=== PATIENT | male | born 1970 | race Caucasian/White ===

== ENCOUNTER 2021-03-21 12:39 | Emergency (ER) | payer SELFPAY ==
[2021-03-21 12:40] VITALS: BP 133/84; PULSE 85; RESP 18; TEMP 36; O2SAT 98
[2021-03-21 14:10] LABS: Absolute Lymphocyte Count 3.08 X10^3/uL (0.83-4.51); Absolute Neutrophil Count 7.2 X10^3/uL (2.0-7.7); Basophil# 0.04 X10^3/uL; Basophil% 0.3 % (0-1); Eosinophil# 0.27 X10^3/uL; Eosinophils% 2.3 % (0-5); Hematocrit 51.2 % (40-54); Hemoglobin 17.6 g/dL (13.0-16.5); Lymphocyte # 3.08 X10^3/ul (0.83-4.51); Lymphocyte % 26.4 % (19-41); Mean Corp Hgb Conc 34.4 g/dL (32-36); Mean Corpuscular Hgb 31.5 pg (27.0-32.0); Mean Corpuscular Volume 91.6 fL (80-94); Mean Platelet Vol. 9.5 fl (6.2-12.0); Monocyte% 8.6 % (0-10); NRBC Flagged by Analyzer 0 % (0-5); Neutrophil # 7.24 X10^3/uL (2.7-7.7); Platelet Count 244 K/mm3 (150-450); RBC Distribution Width CV 12.2 % (11.6-14.6); RBC Distribution Width SD 41.2 fl (35.1-43.9); Red Blood Count 5.59 M/mm3 (4.6-6.2); White Blood Count 11.7 K/mm3 (4.4-11.0)
[2021-03-21 14:21] LABS: ALB/GLOB Ratio 0.8 RATIO (0.9-2.4); AST(SGOT) 26 U/L (15-37); Alanine Aminotransfer ALT/SGPT 31 U/L (16-61); Albumin, Serum 3.9 g/dL (3.2-5.0); Alkaline Phosphatase 87 U/L (45-117); Anion Gap 6 (5-15); BUN 14 mg/dL (7-18); BUN/Creat Ratio 11.6 RATIO (10-20); Chloride 104 mmol/L (98-107); Creatinine, Serum 1.21 mg/dL (0.70-1.30); EST Glomerular Filtration Rate 68 mL/min (>60); Est Glom Filt Rate - Afr Amer 82 mL/min (>60); Glucose 106 mg/dL (74-106); Potassium 3.9 mmol/L (3.5-5.1); Protein, Total 8.9 g/dL (6.4-8.2); Sodium Level 135 mmol/L (136-145)
[2021-03-21] MEDS: Ondansetron 4 MG/2 ML Vial IV (14:30)
[2021-03-21] MEDS: 0.9% Normal Saline 1,000 ML 1000 ML IV (14:30)
[2021-03-21 14:39] LABS: Color, Urine Yellow (Yellow); Glucose, Dipstick Normal (Normal); Ketone-Dipstick 5 mg/dl (Negative); Leukocyte Esterase-Dipstick 25 /ul (Negative); Nitrite-Dipstick Negative (Negative); Occult Blood-Urine Negative /ul (Negative); Protein-Dipstick 30 mg/dl (Negative); Specific Gravity, Urine 1.025 (1.002-1.030); Urine Clarity Sl. Cloudy (Clear); Urine Urobilinogen 1 mg/dl (Normal)
[2021-03-21 14:44] LABS: Urine Bilirubin Dipstick 1 mg/dL (Negative)
--- NOTE | 2021-03-21 14:46 | EDS_ITS ---
HPI HPI - GI History of Present Illness Chief Complaint: Nausea/Vomiting/Diarrhea Informant: patient Abdominal Pain/Flank Pain Onset: Weeks (Onset 6 to 7 days ago) Context: Sudden Onset Timing: Intermittent Quality: Cramping Location: Diffuse Current Severity: Mild Maximum Severity: Moderate Worsened by: - (During vomiting and diarrhea) Relieved by: Nothing Nausea/Vomiting/Emesis GI Symptom: Positive for Nausea, Vomiting and - (3-4 episodes per day for the last 2 days) Onset: Days Quality: Negative for Blood streaks, Coffee ground and Hematemesis Severity: Moderate Diarrhea/Melena/Hematochezia GI Symptom: Positive for Diarrhea; Negative for Melena and Hematochezia Onset: Days (Diarrhea started 6 days ago) Stool Quality: Positive for Watery; Negative for Mucous, Black and Maroon Severity: Moderate Episodes: 6 Associated Symptoms Associated Symptoms: Positive for - (Patient endorses decreased urine output); Negative for Dysuria, Frequency and Hematuria Narrative Narrative: Patient is a 50-year-old male who presents with abdominal pain that started 6 to 7 days ago. He states he had diarrhea for the past 6 days. He is having 6-10 loose stools a day. He denies blood or mucus in his stool. He reports vomiting past 2 days. He is unable to to take his medicines without vomiting. Is not taking his blood pressure med or cholesterol med for the past 2 days. He reports decreased urine output. He does report lightheadedness. He does complain of mild headache with photophobia. Denies neck pain or neck stiffness. He denies double vision, blurred vision loss of his brain eyes ringing his ears decreased hearing. He does report mild rhinorrhea. He denies cough from baseline. He does have sore throat which he attributes to vomiting. He denies hematemesis or coffee-ground emesis. Denies black or maroon-colored stool. He states he has not been on antibiotics in the past month. He does report myalgias and arthralgias. He is not on any immunosuppressive meds. He is not vaccinated. Prior similar symptoms: Yes Recent Illness/Hospitalization: No [facility] Medical History Cholecystectomy planned High cholesterol Hypertension Tonsillectomy planned Home Medications atorvastatin 40 mg PO DAILY 03/21/21 [History Last Taken Unknown] ondansetron 4 mg PO Q8H PRN PRN #10 tab 03/21/21 [Rx Last Taken Unknown] Allergy/AdvReac Type Severity Reaction Status Date / Time Penicillins Allergy Hives Verified 03/21/21 13:21 Social History (Updated 03/21/21 @ 14:[address] Too Hook MD) household members: family Smoking Status: Current every day smoker tobacco type: cigarettes alcohol intake: current details: Not recently substance use type: does not use ROS ROS ED Constitutional Constitutional ED: Reports chills, fever(s) and sweats; Denies weight loss ENT ENT ED: Reports rhinorrhea and sore throat; Denies ear pain Cardiovascular Cardiovascular: Denies chest pain, orthopnea, palpitations or paroxysmal nocturnal dyspnea Respiratory/Chest Respiratory/Chest: Reports cough; Denies dyspnea, dyspnea on exertion, orthopnea, paroxysmal nocturnal dyspnea or sputum Gastrointestinal Gastrointestinal: Reports abdominal pain, diarrhea, nausea and vomiting Genitourinary Genitourinary ED: Denies dysuria, hematuria or urinary frequency Musculoskeletal Musculoskeletal: Reports arthralgias and myalgias; Denies back pain or neck pain Integumentary Denies rash Neurologic Neurologic: Reports headache(s) and weakness; Denies paresthesias Endocrine Endocrinology: Denies polydipsia, polyphagia or polyuria Hematologic/Lymphatic Hematologic/Lymphatic: Denies easy bleeding or easy bruising EXAM Physical Exam Const Vital Signs: 03/21/21 12:40 03/21/21 16:05 Temperature 96.8 F L Temperature Source Temporal Pulse Rate 85 78 Respiratory Rate 18 16 Blood Pressure 133/84 H 153/98 H Blood Pressure Mean 100 116 Pulse Ox 98 98 Oxygen Delivery Method Room Air Room Air Positive well nourished, well developed and obese General Appearance ED: well developed; Negative for pallor Nutritional Appearance: obese HEENT Reports TM's clear and dry mucous membranes HEENT Narrative: Nares patent with slight clear drainage. normocephalic and atraumatic Tympanic Membrane ED: Yes TM's clear Mouth ED: Yes dry mucous membranes Mouth: dry mucous membranes Eyes PERRL and EOMs intact bilaterally General Eye ED: Negative for pale conjunctiva or scleral icterus Neck no lymphadenopathy, supple and no JVD Resp normal respiratory effort and clear to auscultation bilaterally Cardio regular rate, regular rhythm, S1 normal heart sound, S2 normal heart sound and no murmurs GI non-distended and no masses; Negative for non-tender Auscultation: hyperactive bowel sounds; Negative for normoactive bowel sounds Palpation: soft and tender other (Diffuse); Negative for guarding, rigid, hepatomegaly or splenomegaly Back/Spine no CVA tenderness Cervical Spine: Negative for cervical spine tenderness Thoracic Spine / Upper Back: Negative for thoracic spinal tenderness Lumbar Spine / Lower Back: Negative for lumbar spinal tenderness Extremity full ROM General Extremety ED: Yes edema General Extremity: edema Neuro CN's II-XII intact bilaterally Sensorium / Orientation: alert, oriented to person, oriented to place and oriented to time Motor Exam: strength 5/5 throughout Psych mental status grossly normal and thought process normal Skin no wounds General Skin Exam: Negative for jaundice or pallor Lesions: no lesions Rashes: no rashes MDM MDM MDM Narrative Medical decision making narrative: Clinically patient is dehydrated. Will obtain CBC to assess white count and H&H. Comprehensive metabolic panel was obtained to assess liver enzymes, renal function and anion gap. Urine to assess specific gravity and determine if patient has ketones or bilirubin in his urine. He was ordered 1 L of normal saline wide open. He was ordered Zofran for his nausea and vomiting. Since this may represent Covid a Covid test was obtained. PCR test was ordered since his symptoms started greater than 6 days ago. He had no diarrhea in the department. He had small episode of emesis after having potato chips. Patient was told he is to advance his diet slowly. Lab Data Attestation: I reviewed the patient's lab results. Lab results narrative: White count is still elevated 11.7. Hemoglobin is elevated 17.6 which probably represents hemoconcentration. Electrolyte panel reveals slight decrease in sodium of 135. Creatinine is elevated 121 however GFR is 68. Specific gravity is elevated 1.025 and there is evidence of ketones consistent with dehydration. There is 1+ bilirubin. However his total bilirubin and liver enzymes are normal. Suspect this is a false positive. Labs: Laboratory Results - last 24 hr 03/21/21 03/21/21 03/21/21 13:35 13:35 14:30 WBC 11.7 H RBC 5.59 Hgb 17.6 H Hct 51.2 MCV 91.6 MCH 31.5 MCHC 34.4 RDW Std Deviation 41.2 RDW Coeff of Rayshawn 12.2 Plt Count 244 MPV 9.5 Immature Gran % (Auto) 0.400 Neut % (Auto) 62.0 Lymph % (Auto) 26.4 Garza % (Auto) 8.6 Eos % (Auto) 2.3 Baso % (Auto) 0.3 Absolute Neuts (auto) 7.2 Absolute Lymphs (auto) 3.08 Nucleated RBC % 0 Sodium 135 L Potassium 3.9 Chloride 104 Carbon Dioxide 25.0 Anion Gap 6 BUN 14 Creatinine 1.21 Estim Creat Clear Calc 86.80 Est GFR (MDRD) Af Amer 82 Est GFR (MDRD) Non-Af 68 BUN/Creatinine Ratio 11.6 Glucose 106 Calcium 10.0 Total Bilirubin 0.80 AST 26 ALT 31 Alkaline Phosphatase 87 Total Protein 8.9 H Albumin 3.9 Globulin 5.0 H Albumin/Globulin Ratio 0.8 L Urine Color Yellow Urine Clarity Sl. Cloudy Urine pH 5.0 Ur Specific [place] 1.025 Urine Protein 30 H Urine Glucose (UA) Normal Urine Ketones 5 H Urine Occult Blood Negative Urine Nitrite Negative Urine Bilirubin 1 H Urine Urobilinogen 1 H Ur Leukocyte Esterase 25 H Urine RBC 0-5 SEEN Urine WBC 0-5 SEEN Ur Squamous Epith Cells 0-5 SEEN Urine Bacteria RARE Urine Mucus 2+ Discharge Plan Triage Chief Complaint: Nausea/Vomiting/Diarrhea ED Provider: Too Hook Dx/Rx/DC Orders Clinical Impression: Combined abdominal pain, vomiting, and diarrhea, Dehydration, moderate, Ketosis Instructions: ED Dehydration (Adult), ED Vomiting and Diarrhea ... Prescriptions: New ondansetron [ondansetron] 4 MG tablet 4 mg PO Q8H PRN PRN (Reason: Nausea) Qty: 10 RF: 0 No Action atorvastatin 40 mg Tablet 40 mg PO DAILY RF: 0 Primary Care Provider: Care Physician,No Primary Referrals: Care Physician,No Primary [Primary Care Provider] - Disposition Disposition: Home, Self Care
[2021-03-21 14:48] LABS: Bacteria RARE /hpf (None Seen); Mucous, Urine 2+ /hpf (<or=2+); Red Blood Cells-Urine 0-5 SEEN /hpf (0-5); Squamous Epithelial Cells - UA 0-5 SEEN /hpf (0-5); White Blood Cells 0-5 SEEN /hpf (0-5)
[2021-03-21 16:05] VITALS: BP 153/98; PULSE 78; RESP 16; O2SAT 98
[2021-03-21] MEDS: Mag Hydrox/Al Hydrox/Simeth 30 ML UDC PO (17:08)
[2021-03-21 17:09] VITALS: BP 145/95; PULSE 77; RESP 12; O2SAT 97
== END 2021-03-21 17:15 | disposition home or self-care (01) ==
PROVIDERS: Emergency Provider Emergency Medicine
DX: R10.9 Unspecified abdominal pain (principal); R11.2 Nausea with vomiting, unspecified; R19.7 Diarrhea, unspecified; E86.0 Dehydration; E78.00 Pure hypercholesterolemia, unspecified; I10 Essential (primary) hypertension; Z79.899 Other long term (current) drug therapy; F17.210 Nicotine dependence, cigarettes, uncomplicated; E66.9 Obesity, unspecified
CPT/HCPCS: 80053; 81001; 85025; 87635; 96361; 96374; 99285; J7030; U0005; A4216; J2405; U0003

== ENCOUNTER 2021-06-09 13:06 | Emergency (ER) | payer OTHER, SELFPAY ==
[2021-06-09 13:07] VITALS: BP 131/83; PULSE 81; RESP 16; TEMP 36.2; O2SAT 98; BMI 29.6
--- NOTE | 2021-06-09 14:18 | EX.ED.DYSGE1 ---
HPI History of Present Illness Chief Complaint: General Illness Informant: patient Onset/Context/Timing Onset: Yesterday Context: Gradual Onset Timing: Continuous Current Severity: Moderate Maximum Severity: Moderate Associated Symptoms Associated Symptoms ED: cough Narrative Narrative: Unvaccinated patient had started having Covid symptoms yesterday had a positive home test and presents for further evaluation. He has a history of hypertension for which he states he is already treated. Denies any pleuritic chest pain or dyspnea. Just basically malaise, fatigue, myalgias, cough, loss of taste and smell, PFSH PFSH Medical History High cholesterol Hypertension Smoker Home Medications atorvastatin 40 mg PO DAILY 03/21/21 [History Last Taken Unknown] lisinopril 40 mg PO DAILY 06/09/21 [History Last Taken Unknown] Allergy/AdvReac Type Severity Reaction Status Date / Time Penicillins Allergy Hives Verified 06/09/21 13:08 Surgical History (Updated 06/09/21 @ 14:20 by Kash Navarro) History of cholecystectomy History of tonsillectomy and adenoidectomy Social History household members: family Smoking Status: Heavy Smoker (>10/day) alcohol intake: current details: Not recently substance use type: does not use ROS ROS ED Constitutional Constitutional ED: Reports body ache(s), chills, fatigue, fever(s), headache(s) and malaise Eyes Eyes: Denies change in vision or diplopia ENT ENT ED: Denies rhinorrhea or sore throat Cardiovascular Cardiovascular: Denies chest pain or palpitations Respiratory/Chest Respiratory/Chest: Reports cough; Denies dyspnea or dyspnea on exertion Gastrointestinal Gastrointestinal: Reports diarrhea; Denies abdominal pain, nausea or vomiting Genitourinary Genitourinary ED: Denies dysuria or hematuria Musculoskeletal Musculoskeletal: Denies back pain or neck pain Integumentary Denies abscess or rash Neurologic Neurologic: Reports headache(s); Denies paresthesias or weakness Psychiatric Psychiatric: Denies anxiety or suicidal thoughts EXAM Physical Exam Const Vital Signs: 06/09/21 13:07 06/09/21 14:19 Temperature 97.1 F L Temperature Source Temporal Pulse Rate 81 77 Respiratory Rate 16 16 Respiratory Effort Normal Respiratory Pattern Normal Blood Pressure 131/83 H Blood Pressure Mean 99 Pulse Ox 98 98 Oxygen Delivery Method Room Air Room Air Positive well nourished and well developed Constitutional Narrative: Well-appearing, no distress General Appearance ED: well developed and NAD HEENT Reports moist mucous membranes normocephalic and atraumatic Eyes PERRL and EOMs intact bilaterally Neck full ROM and supple Resp normal respiratory effort and clear to auscultation bilaterally Cardio regular rate, regular rhythm and no murmurs Rate: Negative for tachycardic GI non-tender and non-distended Auscultation: normoactive bowel sounds Palpation: soft Back/Spine no CVA tenderness General Back: other FROM Extremity normal to inspection and no calf tenderness General Extremety ED: Negative for edema, pulses abnormal or tenderness General Extremity: Negative for edema or pulses abnormal Neuro oriented x3, CN's II-XII intact bilaterally and no sensory deficits noted Sensorium / Orientation: awake and alert Motor Exam: strength 5/5 throughout Skin no rashes or lesions noted and no wounds MDM MDM MDM Narrative Medical decision making narrative: Patient is oxygenating well with normal vital signs. Rapid Covid confirms that he has COVID-19, we did this for the purpose of getting him monoclonal antibody infusion therapy which he is interested in after we discussed the pros and cons, and he is a candidate because of his history of hypertension. He was referred to that. Lab Data Attestation: I reviewed the patient's lab results. Discharge Plan Triage Chief Complaint: General Illness ED Provider: Bart Horton Dx/Rx/DC Orders Clinical Impression: COVID-19 Instructions: Coronavirus Disease 2019 (COVID-19): Caring for Yourself or Others Prescriptions: No Action atorvastatin 40 mg Tablet 40 mg PO DAILY RF: 0 lisinopril 40 mg Tablet 40 mg PO DAILY RF: 0 Other Ambulatory Orders: COVID Outpatient Monoclonal Antibody Referral (Routine) Timeframe: 1 Day Facility: [facility] - Location: [facility] Ordered By: Dr. Bart Horton Primary Care Provider: Care Physician,No Primary Referrals: Care Physician,No Primary [Primary Care Provider] - Activity Restrictions/Additional Instructions: Try to get a home portable pulse oximeter and closely watch your oxygen levels periodically. If you stay below 90% for more than a minute or so, and/or you are feeling like your breathing is getting worse, return to the emergency department for further evaluation. Disposition Disposition: Home, Self Care
[2021-06-09 14:19] VITALS: PULSE 77; RESP 16; O2SAT 98
[2021-06-09 15:19] VITALS: BP 130/85; PULSE 79; RESP 18; O2SAT 98
--- NOTE | 2021-06-09 15:19 | CM.ED ---
SW Note Referral Source: case Find Referral REason: No PCP SW met with patient. He confirmed he has insurance. SW provided him with [facility] 2020 Healthcare Provider Directory and encouraged him to obtain a PCP. No further SW needs at this time. Natalee DANIELS
== END 2021-06-09 15:20 | disposition home or self-care (01) ==
PROVIDERS: Emergency Provider Emergency Medicine
DX: U07.1 COVID-19 (principal); I10 Essential (primary) hypertension; E78.00 Pure hypercholesterolemia, unspecified; F17.200 Nicotine dependence, unspecified, uncomplicated; Z79.899 Other long term (current) drug therapy
CPT/HCPCS: 87426; 99282

== ENCOUNTER 2021-06-13 08:40 | Outpatient (CLI) | payer OTHER, SELFPAY ==
[2021-06-13 08:50] VITALS: BP 114/67; PULSE 60; RESP 16; TEMP 36.5; O2SAT 99
[2021-06-13 08:53] VITALS: BP 110/69; PULSE 68; RESP 16; TEMP 36.4; O2SAT 99; BMI 31.2
[2021-06-13] MEDS: 0.9% Saline Lock 10 ML Syringe IV (08:56)
[2021-06-13 10:37] VITALS: BP 118/65; PULSE 58; RESP 16; TEMP 36.5; O2SAT 97
== END 2021-06-13 10:39 | disposition home or self-care (01) ==
LOC: MS3OUT 08:40 → MS3 08:41
PROVIDERS: Referring Provider Nurse Practitioner Adult Health; Visit Provider Nurse Practitioner Adult Health
DX: U07.1 COVID-19 (principal)
CPT/HCPCS: J7050; M0245; Q0245; A4216

== ENCOUNTER 2021-08-27 09:20 | Emergency (ER) | payer BC, SELFPAY ==
[2021-08-27 09:20] VITALS: BP 151/88; PULSE 73; RESP 18; TEMP 36.3; O2SAT 98; BMI 31.0
--- NOTE | 2021-08-27 09:47 | EDS_ITS ---
HPI History of Present Illness Chief Complaint: Back Informant: patient Narrative Narrative: Patient presents with back pain. He states he has been having pain for about 3 years. He states his right foot has been numb for 3 years. This is not changed or different. He states every few days he has pain that shoots down the back of his right leg all the way to his foot. He has been having this off and on for years also. He states it is bothering him today. And he has more pain in his lower back and buttock area on the right side. He does not and never has had bowel or bladder dysfunction. He has no fevers chills or recent infections. He states he took a hot bath this morning and when he got out it seemed to be worse. No abdominal pain. No blood in the urine. He can get in positions that make it better. Bending forward makes it worse. PFSH PFSH Medical History High cholesterol Hypertension Smoker Home Medications atorvastatin 40 mg PO DAILY 03/21/21 [History Last Taken Unknown] lisinopril 40 mg PO DAILY 06/09/21 [History Last Taken Unknown] cyclobenzaprine 10 mg PO BID PRN #10 tab 08/27/21 [Rx Last Taken Unknown] prednisone 60 mg PO DAILY #15 tab 08/27/21 [Rx Last Taken Unknown] tramadol 50 mg PO Q6H PRN 3 Days #10 tab 08/27/21 [Rx Last Taken Unknown] Allergy/AdvReac Type Severity Reaction Status Date / Time Penicillins Allergy Hives Verified 08/27/21 09:22 Surgical History History of cholecystectomy History of tonsillectomy and adenoidectomy Social History household members: family Smoking Status: Heavy Smoker (>10/day) alcohol intake: current details: Not recently substance use type: does not use ROS ROS ED Constitutional Constitutional ED: Denies chills or fever(s) Eyes Eyes: Denies change in vision ENT ENT ED: Denies rhinorrhea Cardiovascular Cardiovascular: Denies chest pain or palpitations Respiratory/Chest Respiratory/Chest: Denies dyspnea or sputum Gastrointestinal Gastrointestinal: Denies abdominal pain, constipation, diarrhea, melena, nausea or vomiting Genitourinary Genitourinary ED: Denies dysuria, hematuria or urinary frequency Musculoskeletal Musculoskeletal: Reports back pain; Denies arthralgias, myalgias or neck pain Integumentary Denies rash Neurologic Neurologic: Reports paresthesias; Denies headache(s) or weakness Psychiatric Psychiatric: Denies depression Endocrine Endocrinology: Denies polydipsia or polyuria Hematologic/Lymphatic Hematologic/Lymphatic: Denies easy bleeding or easy bruising Allergic/Immunologic Allergic/Immunologic ED: Denies urticaria EXAM Physical Exam Const Vital Signs: 08/27/21 09:20 Temperature 97.3 F L Temperature Source Temporal Pulse Rate 73 Respiratory Rate 18 Blood Pressure 151/88 H Blood Pressure Mean 109 Pulse Ox 98 Oxygen Delivery Method Room Air Positive well nourished and well developed General Appearance ED: well developed and NAD HEENT Reports moist mucous membranes Eyes General Eye ED: Negative for pale conjunctiva or scleral icterus Neck no JVD Resp normal respiratory effort and clear to auscultation bilaterally Cardio regular rate and regular rhythm GI normal to inspection, nondistended, normoactive bowel sounds, soft to palpation and non-tender Back/Spine normal to inspection Back/Spine Narrative: Patient does have some diffuse tenderness in the lower lumbar area. Most of this is paraspinal more on the right than the left. He also has a fair amount of sciatic notch tenderness in the right buttock. No tenderness down the legs. Extremity normal to inspection Extremity Narrative: No edema, cords, tenderness or asymmetry. General Extremety ED: Negative for edema or tenderness General Extremity: Negative for edema Neuro oriented x3 Neuro Narrative: Is hard for the patient to relax so his reflexes are I think somewhat decreased likely because of this. But they are also equal. He does have +1 bilateral patellar. He has 0 to +1 bilateral Achilles. But there is no real sensory loss. He states his sensation is diffusely worse in his right foot but it is not dermatomal. He can feel things it just feels different than the left. He can get up and move around the room. He has normal quadriceps strength. He can stand on toes or heels although it is painful. Sensorium / Orientation: alert Deep Tendon Reflexes: Rt Patellar (L4): 1+, Lt Patellar (L4): 1+, Rt Ankle (S1): 0 and Lt Ankle (S1): 0 Deep Tendon Reflexes Back: Rt Patellar (L4): 1+, Lt Patellar (L4): 1+, Rt Ankle (S1): 0 and Lt Ankle (S1): 0 Psych mental status grossly normal Skin no rashes or lesions noted MDM MDM MDM Narrative Medical decision making narrative: Patient's had several years of back pain. He has no specific injury in the past or recently. But he does have what seems like some worsening radicular pain. He has been trying Motrin and it does not help. Hot bath helps while he was in the bath but then it was worse afterwards. He does have some spasm. He has sciatic notch tenderness. He has decreased reflexes but they are diffuse and equal. No weakness. He has numbness of his right foot but states that this is chronic and has been there for at least 2 years. I did do online prescribing report. He has a prescription for only a couple Halcion tablets months ago. No narcotics. I will write for some Toradol. I would prefer not to give nonsteroidals along with prednisone. I will try some prednisone because he has been trying nonsteroidals without help. I will also write for Flexeril. We discussed reasons to return. I also exp lained that he needs to see if primary physician as he needs to get follow-up and evaluation for this. We discussed reasons to return. Discharge Plan Triage Chief Complaint: Back ED Provider: Landon Prince Dx/Rx/DC Orders Clinical Impression: Acute lumbar back pain, Acute right lumbar radiculopathy Instructions: ED Sciatica Prescriptions: New cyclobenzaprine 10 mg tablet 10 mg PO BID PRN (Reason: muscle spasm) Qty: 10 RF: 0 prednisone 20 MG tablet 60 mg PO DAILY Qty: 15 RF: 0 tramadol 50 mg tablet 50 mg PO Q6H PRN (Reason: pain) 3 Days Qty: 10 RF: 0 No Action atorvastatin 40 mg Tablet 40 mg PO DAILY RF: 0 lisinopril 40 mg Tablet 40 mg PO DAILY RF: 0 Primary Care Provider: Care Physician,No Primary Referrals: Antony Bautista MD [STAFF PHYSICIAN] - 3-5 Days Care Physician,No Primary [Primary Care Provider] - Disposition Disposition: Home, Self Care
[2021-08-27] MEDS: Ketorolac 60 MG/2 ML Vial IM (10:11)
== END 2021-08-27 10:16 | disposition home or self-care (01) ==
LOC: ED 09:46
PROVIDERS: Emergency Provider Emergency Medicine; Visit Provider Emergency Medicine
DX: M54.16 Radiculopathy, lumbar region (principal); I10 Essential (primary) hypertension; E78.00 Pure hypercholesterolemia, unspecified; F17.200 Nicotine dependence, unspecified, uncomplicated; Z79.899 Other long term (current) drug therapy
CPT/HCPCS: 96372; 99282

== ENCOUNTER 2021-10-13 13:48 | Emergency (ER) | payer BC, SELFPAY ==
[2021-10-13 13:49] VITALS: BP 150/108; PULSE 79; RESP 14; TEMP 36.4; O2SAT 98; BMI 31.4
--- NOTE | 2021-10-13 14:48 | EDS_ITS ---
HPI History of Present Illness Chief Complaint: Dental Informant: patient Onset/Context/Timing Onset: Days Context: Gradual Onset Timing: Continuous Current Severity: Mild Maximum Severity: Mild Relieved by: NSAIDs Associated Symptoms Assocated Symptom - Dental: cold sensitivity and hot sensitivity; Negative for fever, jaw swelling or face swelling Narrative Narrative: 51-year-old male complaining of dental pain and swelling for the last several days. States he has bad teeth. He is currently on no antibiotics. He says been taking Aleve, ibuprofen and aspirin without significant relief. He denies any trouble swallowing or breathing. Prior similar symptoms: Yes Recent Illness/Hospitalization: No PFSH PFSH Medical History High cholesterol Hypertension Smoker Home Medications atorvastatin 40 mg PO DAILY 03/21/21 [History Last Taken Unknown] lisinopril 40 mg PO DAILY 06/09/21 [History Last Taken Unknown] cyclobenzaprine 10 mg PO BID PRN #10 tab 08/27/21 [Rx Last Taken Unknown] prednisone 60 mg PO DAILY #15 tab 08/27/21 [Rx Last Taken Unknown] tramadol 50 mg PO Q6H PRN 3 Days #10 tab 08/27/21 [Rx Last Taken Unknown] clindamycin HCl 300 mg PO 4X/DAY #80 cap 10/13/21 [Rx Last Taken Unknown] Allergy/AdvReac Type Severity Reaction Status Date / Time Penicillins Allergy Hives Verified 10/13/21 13:51 Surgical History History of cholecystectomy History of tonsillectomy and adenoidectomy Social History household members: family Smoking Status: Heavy Smoker (>10/day) alcohol intake: current details: Not recently substance use type: does not use ROS ROS ED ROS Narrative Denies. Review of Systems ROS Unobtainable: Denies due to encephalopathy Constitutional Constitutional ED: Denies fever(s) Eyes Eyes: Denies change in vision ENT ENT ED: Denies ear pain Cardiovascular Cardiovascular: Denies chest pain Respiratory/Chest Respiratory/Chest: Denies dyspnea Gastrointestinal Gastrointestinal: Denies abdominal pain Genitourinary Genitourinary ED: Denies dysuria Musculoskeletal Musculoskeletal: Denies myalgias Integumentary Denies rash Neurologic Neurologic: Denies headache(s) Psychiatric Psychiatric: Denies depression Endocrine Endocrinology: Denies polyuria Hematologic/Lymphatic Hematologic/Lymphatic: Denies easy bruising Allergic/Immunologic Allergic/Immunologic ED: Denies urticaria EXAM Physical Exam Narrative Exam Narrative: 51-year-old male no acute distress vital signs stable afebrile. H EENT exam very poor decaying dentition. Multiple missing teeth eroded teeth cavities. Gingivitis throughout. No palpable abscess. Diffuse dental tende rness. No sign of swelling of his jaw. Posterior pharynx unremarkable no trouble breathing or swallowing. Floor of his mouth is nontender. Neck nontender no lymphadenopathy. Lungs are clear. Heart regular rate and rhythm. Otherwise exam unremarkable. Const Vital Signs: 10/13/21 13:49 Temperature 97.6 F L Temperature Source Temporal Pulse Rate 79 Respiratory Rate 14 Blood Pressure 150/108 H Blood Pressure Mean 122 Pulse Ox 98 Oxygen Delivery Method Room Air Positive well nourished and well developed; Negative for obese, cachectic, contractures or unkempt General Appearance ED: well developed and NAD; Negative for unkempt, cachectic, contractures, pallor or other Nutritional Appearance: Negative for cachectic or obese HEENT tenderness; Negative for trauma Mouth ED: No oral and palatal mucosa normal, Yes lips normal, Yes tongue normal, Yes salivary gland normal, No mouth trauma and Yes oral and palatal mucosa abnormal Mouth: No oral and palatal mucosa normal, lips normal, tongue normal, salivary gland normal, No mouth trauma and oral and palatal mucosa abnormal Teeth and Gingiva: abnormal tooth and associated gingiva, caries, gingiva abnormal, poor dentition and teeth discoloration Throat: posterior oropharynx normal Eyes PERRL and EOMs intact bilaterally General Eye ED: Negative for pale conjunctiva or scleral icterus Neck no lymphadenopathy, supple and no JVD General: normal visual inspection; Negative for anterior neck swelling or tenderness Lymph Lymphatic: no lymphadenopathy noted; Negative for lymphadenopathy Chest Wall inspection of chest normal and palpation of chest normal Resp normal respiratory effort, no retractions and clear to auscultation bilaterally Cardio regular rate, regular rhythm, S1 normal heart sound, S2 normal heart sound and no murmurs GI normal to inspection, nondistended, normoactive bowel sounds, non-tender, non-d istended and no masses Palpation: soft Back/Spine no CVA tenderness General Back: Negative for CVA tenderness Thoracic Spine / Upper Back: Negative for thoracic spinal tenderness or paraspinal muscle tenderness Extremity normal to inspection and no joint enlargement General Extremety ED: Negative for edema General Extremity: Negative for edema Neuro oriented x3, moves all extremities and no focal motor deficits Sensorium / Orientation: alert, oriented to person, oriented to place and oriented to time; Negative for orientation impaired Motor Exam: strength 5/5 throughout Psych mental status grossly normal Appearance: Negative for unkempt Mood & Affect: Negative for depressed or tearful Skin no rashes or lesions noted and no wounds General Skin Exam: Negative for pallor MDM MDM MDM Narrative Medical decision making narrative: 51-year-old with dental caries, decay and gingivitis. He has a penicillin allergy. To be placed on clindamycin with his first dose given here. Tylenol Motrin for pain. He will be given 2 [place] here for pain but not a prescription for home. Follow-up with a dentist. Discharge Plan Triage Chief Complaint: Dental ED Provider: Quinn Cohen Dx/Rx/DC Orders Clinical Impression: Dental cavities, Acute gingivitis Instructions: Periodontal Disease ..., ED Dental Pain, ED Dental Cavity Prescriptions: New clindamycin HCl 150 mg capsule 300 mg PO 4X/DAY Qty: 80 RF: 0 No Action atorvastatin 40 mg Tablet 40 mg PO DAILY RF: 0 lisinopril 40 mg Tablet 40 mg PO DAILY RF: 0 cyclobenzaprine 10 mg tablet 10 mg PO BID PRN (Reason: muscle spasm) Qty: 10 RF: 0 prednisone 20 MG tablet 60 mg PO DAILY Qty: 15 RF: 0 tramadol 50 mg tablet 50 mg PO Q6H PRN (Reason: pain) 3 Days Qty: 10 RF: 0 Primary Care Provider: Ti Laurent Referrals: Ti Laurent MD [Primary Care Provider] - As Needed Karen Jean Baptiste [NON-STAFF] - As soon as possible Activity Restrictions/Additional Instructions: Warm salt water gargling. Motrin and Tylenol for pain. Clindamycin 4 times a day for the dental infection. Follow-up with a dentist as soon as possible. Disposition Disposition: Home, Self Care
[2021-10-13] MEDS: HYDROcodone Bitartrate/Apap 5/325 Tablet PO (14:58)
[2021-10-13] MEDS: Clindamycin HCl 150 MG Capsule 300 MG PO (14:59)
[2021-10-13 15:01] VITALS: PULSE 80; RESP 16
== END 2021-10-13 15:02 | disposition home or self-care (01) ==
PROVIDERS: Emergency Provider Emergency Medicine; PCP Internal Medicine; Visit Provider Emergency Medicine
DX: K02.9 Dental caries, unspecified (principal); K05.00 Acute gingivitis, plaque induced; I10 Essential (primary) hypertension; E78.00 Pure hypercholesterolemia, unspecified; F17.200 Nicotine dependence, unspecified, uncomplicated; Z79.899 Other long term (current) drug therapy
CPT/HCPCS: 99283

== ENCOUNTER 2021-10-29 20:38 | Emergency (ER) | payer BC, MEDICAID, SELFPAY ==
[2021-10-29 20:39] VITALS: BP 148/97; PULSE 88; RESP 18; TEMP 36.3; O2SAT 98; BMI 30.6
[2021-10-29 20:45] VITALS: PULSE 78; RESP 16; O2SAT 99
--- NOTE | 2021-10-29 21:05 | EKG12_ITS ---
Test Reason : CP Blood Pressure : / mmHG Vent. Rate : 080 BPM Atrial Rate : 080 BPM P-R Int : 128 ms QRS Dur : 094 ms QT Int : 376 ms P-R-T Axes : 013 026 029 degrees QTc Int : 433 ms Poor data quality, interpretation may be adversely affected Normal sinus rhythm Increased R/S ratio in V1, consider early transition or posterior infarct Abnormal ECG Confirmed by MADINA CHRIS, MELANIE ([id number]), editorial manager BEN CH ([id number]) on 10/31/2021 12:59:35 P M Referred By: EHSAN Confirmed By:WILIAN PAINTER MD
--- NOTE | 2021-10-29 21:06 | RAD_ITS ---
STUDY: X-RAY CHEST REASON FOR EXAM: Male, 51 years old. chest pain TECHNIQUE: Single AP portable view of the chest. COMPARISON: None. FINDINGS: The lungs are clear and expanded. There is no demonstrated pleural abnormality. Normal size heart. Normal mediastinum and pamela. Normal visualized pulmonary arteries. Normal visualized aortic arch and descending thoracic aorta. Normal visualized thoracic spine. Normal visualized ribs, clavicles, and shoulders. There is no demonstrated abnormality of the visualized soft tissue structures of the upper abdomen. RAD/Chest 1 View (Portable) IMPRESSION: Normal x-ray examination of the chest. Electronically Signed: Ambrosio Mariee DO at 21:27 EDT ,
--- NOTE | 2021-10-29 21:07 | ED.VIS.CHEST ---
HPI History of Present Illness Chief Complaint: Chest Pain Informant: patient Onset/Context/Timing Onset: Hours (2.5) Activity at onset: sudden and - (lying down on couch) Timing: Continuous Quality: Positive for Pain (and numbness) Location: Substernal (lower and to left chest) Current Severity: Moderate Maximum Severity: Moderate Worsened By: Nothing; Not Worsened By Breathing Relieved By: Nothing (sitting up no different) Associated Symptoms: Positive for Dyspnea and Lightheadedness (transient, gone now); Negative for Nausea, Vomiting, Diaphoresis, Cough, Fever and Palpitations Narrative Narrative: Patient states he is currently homeless. He was lying down when his chest discomfort started about 2.5 hours ago and has been constant since then. He states when he got up to walk he became a little lightheaded without any palpitations or syncope, that is gone now. No recent illness. No recent leg pain or swelling. No history of clots. He states since he is homeless, he has been out of his blood pressure and cholesterol medication for about 2 months. CVD Risk Factors: Positive for Hypertension, Hypercholesterolemia and Smoking; Negative for Diabetes and Family History 1' </=55 PFSH PFSH Medical History High cholesterol Hypertension Smoker Home Medications lisinopril 40 mg PO DAILY #30 tab 10/30/21 [Rx Last Taken Unknown] Allergy/AdvReac Type Severity Reaction Status Date / Time Penicillins Allergy Hives Verified 10/29/21 20:42 Surgical History History of cholecystectomy History of tonsillectomy and adenoidectomy Social History household members: family Smoking Status: Heavy Smoker (>10/day) alcohol intake: current details: Not recently substance use type: does not use ROS ROS ED Constitutional Constitutional ED: Denies chills or fever(s) Eyes Eyes: Denies change in vision or diplopia ENT ENT ED: Denies rhinorrhea or sore throat Cardiovascular Cardiovascular: Reports chest pain; Denies palpitations Respiratory/Chest Respiratory/Chest: Reports as per HPI; Denies cough or dyspnea Gastrointestinal Gastrointestinal: Denies abdominal pain, diarrhea, nausea or vomiting Genitourinary Genitourinary ED: Denies dysuria or hematuria Musculoskeletal Musculoskeletal: Denies back pain or neck pain Integumentary Denies abscess or rash Neurologic Neurologic: Denies headache(s), paresthesias or weakness Psychiatric Psychiatric: Denies anxiety or suicidal thoughts EXAM Physical Exam Const Vital Signs: 10/29/21 20:39 10/29/21 20:45 10/29/21 21:17 Temperature 97.4 F L Temperature Source Temporal Pulse Rate 88 78 Respiratory Rate 18 16 Respiratory Effort Normal Blood Pressure 148/97 H Blood Pressure Mean 114 Pulse Ox 98 99 97 Oxygen Delivery Method Room Air Room Air Room Air 10/29/21 21:54 10/29/21 22:26 10/29/21 23:00 Temperature Temperature Source Pulse Rate 74 77 75 Respiratory Rate 15 15 Respiratory Effort Blood Pressure 135/64 H 137/94 H 137/93 H Blood Pressure Mean 87 108 107 Pulse Ox 98 98 98 Oxygen Delivery Method Room Air Room Air Room Air Positive well nourished, well developed and unkempt General Appearance ED: unkempt, well developed and NAD HEENT Reports moist mucous membranes normocephalic and atraumatic Eyes PERRL and EOMs intact bilaterally Eyes Narrative: Mild ptosis of right upper eyelid which is mildly swollen and mildly diffusely tender without a focal hordeolum/abscess. Able to squeeze eyes shut symmetrically. Forehead raises symmetrically. No lower facial droop. Neck full ROM and supple Resp normal respiratory effort and clear to auscultation bilaterally Cardio regular rate, regular rhythm and no murmurs GI non-tender and non-distended Auscultation: normoactive bowel sounds Palpation: soft Back/Spine no CVA tenderness General Back: other FROM Extremity normal to inspection and no calf tenderness General Extremety ED: Negative for edema, pulses abnormal or tenderness General Extremity: Negative for edema or pulses abnormal Neuro oriented x3, CN's II-XII intact bilaterally and no sensory deficits noted Sensorium / Orientation: awake and alert Motor Exam: strength 5/5 throughout Psych Appearance: unkempt Skin no rashes or lesions noted and no wounds Heart Score History: Moderately Suspicious ECG: Normal Age: >45 - <65 years Risk Factors: >/= 3 Risk Factors or History of CAD Troponin: </= Normal Limit Score: 4 MDM MDM MDM Narrative Medical decision making narrative: PERC score is 0. No further work-up necessary in order to rule out pulmonary embolus here. Is very hypertensive in since he was out of his medications for a while I gave him a single dose of clonidine 0.2 mg, this brought his pressure down to 137/94 and he was also given a GI cocktail. Neither of these helped with his chest discomfort which was still present. His initial troponin was negative. He was given IV Toradol while we awaited the second troponin measurement. He felt much better afterwards, and the 2nd troponin returned negative as well for a delta of 0. Pt can be safely discharged home to follow up as an outpatient, and will Rx lisinopril 40mg, which is what he used to take according to old records. Lab Data Attestation: I reviewed the patient's lab results. Labs: Laboratory Results - last 24 hr 10/29/21 10/29/21 10/29/21 20:50 20:50 20:50 WBC 10.2 RBC 5.13 Hgb 16.5 Hct 46.1 MCV 89.9 MCH 32.2 H MCHC 35.8 RDW Std Deviation 39.7 RDW Coeff of Rayshawn 12.1 Plt Count 255 MPV 9.5 Immature Gran % (Auto) 0.300 Neut % (Auto) 44.5 L Lymph % (Auto) 44.7 H [place] % (Auto) 5.1 Eos % (Auto) 4.7 Baso % (Auto) 0.7 Absolute Neuts (auto) 4.5 Absolute Lymphs (auto) 4.56 H Nucleated RBC % 0 Sodium 139 Potassium 3.9 Chloride 105 Carbon Dioxide 28.0 Anion Gap 6 BUN 14 Creatinine 1.28 Estim Creat Clear Calc 83.44 Est GFR (MDRD) Af Amer 77 Est GFR (MDRD) Non-Af 64 BUN/Creatinine Ratio 10.9 Glucose 126 H Calcium 9.3 Troponin I High Sens < 3 L 10/30/21 00:01 WBC RBC Hgb Hct MCV MCH MCHC RDW Std Deviation RDW Coeff of [place]hawn Plt Count MPV Immature Gran % (Auto) Neut % (Auto) Lymph % (Auto) [place] % (Auto) Eos % (Auto) Baso % (Auto) Absolute Neuts (auto) Absolute Lymphs (auto) Nucleated RBC % Sodium Potassium Chloride Carbon Dioxide Anion Gap BUN Creatinine Estim Creat Clear Calc Est GFR (MDRD) Af Amer Est GFR (MDRD) Non-Af BUN/Creatinine Ratio Glucose Calcium Troponin I High Sens < 3 L Radiography Chest X-Ray - ED: 1 View, Read by ED Physician and No Acute Disease Diagnostic Testing: Clinical Impression(s) from Imaging Studies Chest X-Ray 10/29/21 21:06 IMPRESSION: Normal x-ray examination of the chest. Electronically Signed: Ambrosio Mariee DO at 21:27 EDT Reading Location ID and State: [address] [place] [address] Tel , Service support , EKG Initial EKG: Attestation: I personally reviewed and interpreted this EKG as follows: Interpretation: Sinus Rhythm and No Acute Injury Pattern Comments: normal EKG Prior: No Prior Discharge Plan Triage Chief Complaint: Chest Pain ED Provider: Bart Horton Dx/Rx/DC Orders Clinical Impression: Chest pain, unspecified, Accelerated hypertension Instructions: ED Chest Pain, Uncertain Cause Prescriptions: New lisinopril 40 mg tablet 40 mg PO DAILY Qty: 30 RF: 0 Primary Care Provider: Ti Laurent Referrals: Ti Laurent MD [Primary Care Provider] - 1 Week Disposition Disposition: Home, Self Care
[2021-10-29] MEDS: cloNIDine HCl 0.2 MG Tablet PO (21:16)
[2021-10-29 21:17] VITALS: O2SAT 97
[2021-10-29] MEDS: Mag Hydrox/Al Hydrox/Simeth 30 ML UDC PO (21:17)
[2021-10-29 21:19] LABS: Absolute Lymphocyte Count 4.56 X10^3/uL (0.83-4.51); Absolute Neutrophil Count 4.5 X10^3/uL (2.0-7.7); Basophil# 0.07 X10^3/uL; Basophil% 0.7 % (0-1); Eosinophil# 0.48 X10^3/uL; Eosinophils% 4.7 % (0-5); Hematocrit 46.1 % (40-54); Hemoglobin 16.5 g/dL (13.0-16.5); Lymphocyte # 4.56 X10^3/ul (0.83-4.51); Lymphocyte % 44.7 % (19-41); Mean Corp Hgb Conc 35.8 g/dL (32-36); Mean Corpuscular Hgb 32.2 pg (27.0-32.0); Mean Corpuscular Volume 89.9 fL (80-94); Mean Platelet Vol. 9.5 fl (6.2-12.0); Monocyte# 0.52 X10^3/uL; Monocyte% 5.1 % (0-10); NRBC Flagged by Analyzer 0 % (0-5); Neutrophil # 4.54 X10^3/uL (2.7-7.7); Neutrophil % 44.5 % (47-70); Platelet Count 255 K/mm3 (150-450); RBC Distribution Width CV 12.1 % (11.6-14.6); RBC Distribution Width SD 39.7 fl (35.1-43.9); Red Blood Count 5.13 M/mm3 (4.6-6.2); White Blood Count 10.2 K/mm3 (4.4-11.0)
[2021-10-29 21:42] LABS: Anion Gap 6 (5-15); BUN 14 mg/dL (7-18); BUN/Creat Ratio 10.9 RATIO (10-20); Calcium,Total 9.3 mg/dL (8.5-10.1); Chloride 105 mmol/L (98-107); Creatinine, Serum 1.28 mg/dL (0.70-1.30); EST Glomerular Filtration Rate 64 mL/min (>60); Est Glom Filt Rate - Afr Amer 77 mL/min (>60); Estimated Creatinine Clearance 83.44 ml/min; Glucose 126 mg/dL (74-106); Potassium 3.9 mmol/L (3.5-5.1); Sodium Level 139 mmol/L (136-145)
[2021-10-29 21:54] VITALS: BP 135/64; PULSE 74; RESP 15; O2SAT 98
[2021-10-29 22:07] LABS: Troponin-I HS (w/2H Reflex) < 3 pg/mL (3.0-78.0)
[2021-10-29 22:26] VITALS: BP 137/94; PULSE 77; RESP 15; O2SAT 98
[2021-10-29 23:00] VITALS: BP 137/93; PULSE 75; O2SAT 98
[2021-10-29] MEDS: Ketorolac 30 MG/ML Syringe IV (23:20)
[2021-10-29 23:48] LABS: Reflex Troponin-HS? (from REC) Y
[2021-10-30 00:37] LABS: Troponin-I HS < 3 pg/mL (3.0-78.0)
[2021-10-30 00:48] VITALS: BP 109/75; PULSE 74; RESP 13; O2SAT 99
== END 2021-10-30 00:49 | disposition home or self-care (01) ==
PROVIDERS: Emergency Provider Emergency Medicine; PCP Internal Medicine; Visit Provider Emergency Medicine
DX: R07.9 Chest pain, unspecified (principal); I10 Essential (primary) hypertension; F17.200 Nicotine dependence, unspecified, uncomplicated; Z59.00 Homelessness unspecified; Z79.899 Other long term (current) drug therapy
CPT/HCPCS: 71045; 80048; 84484; 85025; 93005; 96374; 99283; A4216

== ENCOUNTER 2021-12-28 20:58 | Emergency (ER) | payer MEDICAID, SELFPAY ==
[2021-12-28 20:59] VITALS: BP 131/105; PULSE 110; RESP 15; TEMP 35.6; O2SAT 97; BMI 31.2
--- NOTE | 2021-12-28 21:19 | EDS_ITS ---
HPI HPI - URI History of Present Illness Chief Complaint: Cough Informant: patient Onset/Context/Timing Onset: Today Context: Gradual Onset Timing: Continuous Current Severity: Mild Maximum Severity: Mild Associated Symptoms Associated Symptoms: Positive for Nasal Congestion and Productive Cough Narrative Narrative: 51-year-old male history of hypertension. Says that he started coughing then started having productive yellowish sputum. He took Mucinex, ibuprofen and Tylenol. States his phlegm is yellow. Denies hemoptysis. No fever. No shortness of breath. He believes this is secondary to his seasonal allergies. He has had this before. He denies any chest pain except with coughing. Prior similar symptoms: Yes Recent Illness/Hospitalization: No ROS ROS ED ROS Narrative Cough. Review of Systems ROS Unobtainable: Denies due to encephalopathy Constitutional Constitutional ED: Denies fever(s) Eyes Eyes: Denies change in vision ENT ENT ED: Denies ear pain Cardiovascular Cardiovascular: Denies chest pain Respiratory/Chest Respiratory/Chest: Reports cough and sputum; Denies dyspnea Gastrointestinal Gastrointestinal: Denies abdominal pain Genitourinary Genitourinary ED: Denies dysuria Musculoskeletal Musculoskeletal: Denies myalgias Integumentary Denies rash Neurologic Neurologic: Denies headache(s) Psychiatric Psychiatric: Denies depression Endocrine Endocrinology: Denies polyuria Hematologic/Lymphatic Hematologic/Lymphatic: Denies easy bruising Allergic/Immunologic Allergic/Immunologic ED: Denies urticaria PFSH PFSH Medical History High cholesterol Hypertension Smoker Home Medications lisinopril 40 mg PO DAILY #30 tab 10/30/21 [Rx Last Taken Unknown] pravastatin 40 mg PO DAILY 12/28/21 [History Last Taken Unknown] prednisone 40 mg PO DAILY 7 Days #14 tab 12/28/21 [Rx Last Taken Unknown] Allergy/AdvReac Type Severity Reaction Status Date / Time Penicillins Allergy Hives Verified 12/28/21 21:02 Surgical History History of cholecystectomy History of tonsillectomy and adenoidectomy Social History household members: family Smoking Status: Heavy Smoker (>10/day) alcohol intake: current details: Not recently substance use type: does not use EXAM Physical Exam Narrative Exam Narrative: Middle-age male no acute distress vital signs stable afebrile. Pulse ox 97% on room air no signs of hypoxia. H EENT exam unremarkable other than nasal congestion. Posterior nasal drip. Posterior pharynx is without erythema or exudate. Neck nontender. Lungs are clear equal symmetrical dry cough. Heart regular rhythm no murmur. Rate about 105. Abdomen soft nontender. Normal bowel sounds no peritoneal signs. Moving all 4 extremities. Nontender no edema. Const Vital Signs: 12/28/21 20:59 12/28/21 21:05 Temperature 96.1 F L Temperature Source Temporal Pulse Rate 110 H Respiratory Rate 15 Respiratory Effort Normal Respiratory Depth Normal Respiratory Pattern Normal Blood Pressure 131/105 H Blood Pressure Mean 113 Pulse Ox 97 Oxygen Delivery Method Room Air Room Air Positive well nourished and well developed; Negative for cachectic or contractures General Appearance ED: well developed and NAD; Negative for cachectic, contractures, cyanotic, diaphoretic or pallor Nutritional Appearance: Negative for cachectic HEENT Reports moist mucous membranes normocephalic and atraumatic External Ear: external ears normal Throat: posterior oropharynx normal Eyes PERRL and EOMs intact bilaterally General Eye ED: Negative for pale conjunctiva or scleral icterus Neck no lymphadenopathy, supple, no meningeal signs and No no JVD General: Negative for anterior neck swelling or lymphadenopathy Resp normal respiratory effort and clear to auscultation bilaterally Auscultation: Negative for rales, rhonchi or wheezes Cardio S1 normal heart sound, S2 normal heart sound and no murmurs Rate: regular rate Rhythm: regular rhythm GI non-tender, non-distended and no masses Inspection: Negative for abdominal distention Auscultation: normoactive bowel sounds Palpation: soft; Negative for tender or guarding Back/Spine no CVA tenderness and normal ROM General Back: Negative for CVA tenderness Cervical Spine: Negative for cervical spine tenderness Extremity normal to inspection and full ROM General Extremety ED: Negative for cyanosis or tenderness General Extremity: Negative for cyanosis Neuro oriented x3 Sensorium / Orientation: alert, oriented to person, oriented to place and oriented to time; Negative for orientation impaired, lethargic or stuporous Motor Exam: strength 5/5 throughout Psych mental status grossly normal Attitude: No agitated Mood & Affect: Negative for depressed or tearful Skin General Skin Exam: Negative for jaundice or pallor Lesions: no lesions Rashes: no rashes MDM MDM MDM Narrative Medical decision making narrative: 51-year-old male nothing acute with nasal con gestion. Discussed with patient this is either viral illness or seasonal allergies. Using the counter cough syrup. He does not already have antibiotic at this time. He will be placed on prednisone Discharge Plan Triage Chief Complaint: Cough ED Provider: Quinn Cohen Dx/Rx/DC Orders Clinical Impression: Seasonal allergies, URI (upper respiratory infection) Instructions: ED Seasonal Allergy, ED URI, Viral, No Abx (Adult) Prescriptions: New prednisone 20 mg tablet 40 mg PO DAILY 7 Days Qty: 14 RF: 0 No Action lisinopril 40 mg tablet 40 mg PO DAILY Qty: 30 RF: 0 pravastatin 40 mg Tablet 40 mg PO DAILY RF: 0 Primary Care Provider: Ti Laurent Referrals: Ti Laurent MD [Primary Care Provider] - 1 Week if not improving Activity Restrictions/Additional Instructions: This is either seasonal allergies or more likely viral illness. Should progressively improve. The steroids are helping with seasonal allergies. Use [id number] cough syrup. Follow-up with your doctor if not improving. Disposition Disposition: Home, Self Care
[2021-12-28] MEDS: predniSONE 20 MG Tablet 40 MG PO (21:35)
[2021-12-28 21:37] VITALS: BP 142/90; PULSE 99; RESP 15; O2SAT 99
== END 2021-12-28 21:38 | disposition home or self-care (01) ==
PROVIDERS: Emergency Provider Emergency Medicine; PCP Internal Medicine; Visit Provider Emergency Medicine
DX: J30.2 Other seasonal allergic rhinitis (principal); J06.9 Acute upper respiratory infection, unspecified; I10 Essential (primary) hypertension; E78.00 Pure hypercholesterolemia, unspecified; F17.200 Nicotine dependence, unspecified, uncomplicated; Z79.899 Other long term (current) drug therapy
CPT/HCPCS: 99282